=== PATIENT | female | born 1970 | race Caucasian/White ===

== ENCOUNTER 2018-04-26 16:33 | Emergency (ER) | payer SELFPAY ==
[~2018-04-26 16:33] MED LIST: Sodium Chloride 0.9% 1,000 ML BAG ONE
[2018-04-26 17:06] LABS: Bilirubin Negative (Negative); Blood, Urine Small (Negative); Clarity Clear (Clear); Glucose, Urine (Dipstick) Negative (Negative); Leukocyte Negative (Negative); Nitrite Negative (Negative); Protein, Urine (Dipstick) Negative (Neg-Trace); Specific Gravity, Urine 1.004 (1.002-1.036); Urobilinogen 0.2 mg/dL (0.2-1.0)
[2018-04-26 17:11] LABS: Bacteria/HPF Rare-Few HPF (None Seen); RBC/HPF 0-3 HPF (0-3); Squamous Epithelial 0-3 HPF (0-3); WBC/HPF None Seen HPF (0-3)
[2018-04-26] MEDS ORDERED: Ondansetron ODT 4 MG TAB ONE (17:22)
[2018-04-26] MEDS ORDERED: Ketorolac Tromethamine 30 MG/ML VIAL ONE (17:45)
[2018-04-26] MEDS ORDERED: Ondansetron HCl/PF 4 MG/2 ML Vial ONE (18:42)
[2018-04-26] MEDS ORDERED: Acetaminophen 500 MG TAB ONE (21:05)
[2018-04-26] MEDS ORDERED: HYDROcodone/Acetaminophen 10/325 mg Tablet ONE (21:05)
== END 2018-04-26 21:13 | disposition home or self-care (01) ==
LOC: MADERS 16:33
DX: E86.0 Dehydration (principal); R51 Headache; R11.2 Nausea with vomiting, unspecified; K21.9 Gastro-esophageal reflux disease without esophagitis; F41.9 Anxiety disorder, unspecified; F17.210 Nicotine dependence, cigarettes, uncomplicated; Z79.899 Other long term (current) drug therapy
CPT/HCPCS: 81003; 81015; 96361; 96372; 96374; J1885; J2405; J7050; Q0162